=== PATIENT | female | born 1990 | race American Indian/Alaskan Native ===

== ENCOUNTER 2018-03-26 01:12 | Emergency (ER) | payer SELFPAY ==
[2018-03-26] MEDS ORDERED: PERCOCET 5/325 PO ONE (05:53)
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
[2018-03-26 09:00] VITALS: BP 101/64
== END 2018-03-26 08:50 | disposition home or self-care (01) ==
LOC: ED 01:12
DX: R68.84 Jaw pain (principal); F17.200 Nicotine dependence, unspecified, uncomplicated; F12.10 Cannabis abuse, uncomplicated
CPT/HCPCS: 70486